=== PATIENT | female | born 2000 | race Caucasian/White ===

== ENCOUNTER 2019-04-06 16:05 | Inpatient (IN) | payer OTHER, SELFPAY | END 2019-04-09 12:43 | disposition home or self-care (01) | DRG 690 | PROVIDERS: Admitting Provider Family Medicine; Emergency Provider Family Medicine; Visit Provider Family Medicine | DX: N10 Acute pyelonephritis (principal); A59.01 Trichomonal vulvovaginitis; F17.210 Nicotine dependence, cigarettes, uncomplicated ==

== ENCOUNTER 2020-03-25 13:54 | Emergency (ER) | payer OTHER, SELFPAY ==
[2020-03-25 14:05] VITALS: BP 133/80; PULSE 122; RESP 14; TEMP 37.7; O2SAT 100; BMI 20.7
--- NOTE | 2020-03-25 14:13 | XRR_ITS ---
PROCEDURE INFORMATION: Exam: XR Chest, 1 View Exam date and time: 03/25/2020 2:16 PM Age: 20 years old Clinical indication: Shortness of breath; Additional info: SOA TECHNIQUE: Imaging protocol: XR of the chest Views: 1 view. COMPARISON: No relevant prior studies available. FINDINGS: Lungs: Unremarkable. No consolidation. Pleural space: Unremarkable. No pleural effusion. No pneumothorax. Heart/Mediastinum: Unremarkable. No cardiomegaly. Bones/joints: Unremarkable. XR/XR chest 1V portable [id number] IMPRESSION: No acute findings.
--- NOTE | 2020-03-25 14:16 | W.ED.SOB ---
HPI - SOB/Dyspnea General: Chief Complaint: Shortness of Breath/Dyspnea Stated Complaint: difficulty breathing Time Seen by Provider: 03/25/20 14:09 Source: patient Mode of arrival: ambulatory Limitations: no limitations History of Present Illness: HPI Narrative: Patient is a 20-year-old female who admits to a history of anxiety who states this morning she woke up feeling short of breath. States she could not walk from her kitchen to her living room without having to stop to catch her breath. Denies coronavirus exposures, denies chance of although LMP was 2 weeks ago. She is mildly febrile with a temperature of 99.8 she is tachycardic with a heart rate of 122 over she is 100% oxygen saturation on room air. She states chest pain on and off for the past month, she states she checked in here but it was very busy and therefore she had left prior to being seen. She denies any significant concerns with this. She denies pedal edema or calf pain, no headache. She denies nausea or vomiting. She is alert and oriented and does appear somewhat anxious. MD elicited complaint: shortness of breath Onset (ago): hour(s) Timing: intermittent Severity: moderate Exacerbating factors: exertion Associated symptoms: Reports fever(s); Deny abdominal pain, extremity pain, hemoptysis, nausea, orthopnea, polydipsia, polyuria or vomiting Related Data: Home oxygen amount: none Review of Systems Const: Reports: fever(s) Eyes: Denies: change in vision, blurry vision, eye discharge or eye redness ENMT: Denies: throat pain, uvular edema, odynophagia, mouth pain, dental pain, nasal congestion or sinus pain Card: Denies: irregular heart rhythm, swelling of feet/ankles, dyspnea on exertion, orthopnea or leg pain with exertion Resp: Reports: dyspnea; Denies: stridor, pain on inspiration or hemoptysis GI: Denies: abdominal pain, nausea, vomiting, diarrhea, constipation or fecal incontinence : Denies: flank pain, difficulty voiding, dysuria, urinary frequency, urinary urgency or urinary hesitancy Musc: Denies: neck pain, back pain, extremity pain or extremity swelling Skin/Breast: Denies: rash, pruritus, erythema, jaundice or dry skin Neuro: Denies: headache(s), numbness in extremities, weakness in extremities, sensory changes, lack of coordination or difficulty walking Psych: Denies: anxiety, depression, mood swings, panic attacks, sleeping less, suicidal ideation or homicidal ideation Endo: Denies: polyuria, polydipsia or tired all the time Jose/Lymph: Denies: easy bruising, petechiae or enlarged lymph nodes All/Imm: Denies: urticaria, throat swelling, facial swelling, acute wheezing or seasonal rhinorrhea [facility] ED Female Reproductive History: Date of last menstrual period: 01/20/20 Physical Exam Const: COMMON NORMALS: no acute distress, patient oriented x3, no limitations, healthy appearing, alert and well nourished GENERAL APPEARANCE: cooperative, comfortable, well kempt and well developed ORIENTATION/CONSCIOUSNESS: Yes awake, Yes oriented to person, Yes oriented to place and Yes oriented to time HENMT: COMMON NORMALS: normocephalic, atraumatic, hearing grossly normal bilaterally, external ears normal, EAC's normal, TM's normal bilaterally, Normal external nose present, Normal nasal mucous membranes and turbinates present, moist oral mucous membranes, oropharynx normal, dentition normal and gingiva normal HEAD & SCALP: normal to inspection, normocephalic and atraumatic FACE & SINUS: normal facial exam NOSE: Normal external nose present and Normal nasal mucous membranes and turbinates present EXTERNAL EAR: Yes external ears normal EXTERNAL AUDITORY CANAL: EAC's normal TYMPANIC MEMBRANE: TM's normal bilaterally MOUTH: Normal oral and palatal mucosa present, lip normal and tongue normal THROAT: no uvular edema Eye: COMMON NORMALS: Equal, round and reactive pupils present, EOMs intact bilaterally, conjunctivae normal, no scleral icterus and normal visual gunn by confrontation GENERAL EYE: appearance normal, both eyes and all related structures and normal light reflex VISUAL ACUITY: Yes acuity normal ALIGNMENT: Yes alignment normal PERIORBITAL: periorbital findings normal EYELID: eyelids normal CONJUNCTIVA: Yes conjunctivae normal SCLERA: sclerae normal PUPIL: Yes Equal, round and reactive pupils present and Yes Pupil accommodation reflex normal DIRECT OPHTHALMOSCOPY: Yes normal light reflex Neck/C-Spine: COMMON NORMALS: full ROM, no lymphadenopathy, supple, no meningeal signs and no JVD GENERAL: Yes normal visual inspection CAROTIDS: Yes normal carotid upstroke CERVICAL SPINE: Yes cervical ROM normal Lymph: LYMPHATIC: no lymphadenopathy noted Chest: COMMONS NORMALS: normal inspection of the chest CHEST: Yes Symmetrical chest wall rise Resp: COMMON NORMALS: No retractions and clear to auscultation bilaterally EFFORT & INSPECTION: Yes able to speak in complete sentences, Yes symmetric chest movement, Yes tachypneic, No decreased respiratory effort, Yes uses accessory muscles (abdominal muscles), No segmental paradoxical chest wall movement and No tripod positioning AUSCULTATION: clear to auscultation bilaterally Cardio: COMMON NORMALS: no JVD, regular rate, regular rhythm, S1 normal heart sound present, S2 normal heart sound present, No murmurs present (Cardio) and Peripheral pulses 2+ throughout RATE: regular rate RHYTHM: regular rhythm HEART SOUNDS: S1 normal heart sound present and S2 normal heart sound present PERIPHERAL PULSES: Peripheral pulses 2+ throughout GI: COMMON NORMALS: Normal to inspection, nondistended, normoactive bowel sounds present and non-tender : COMMON NORMALS: Yes no CVA tenderness BLADDER/KIDNEY EXAM: Yes no CVA tenderness Back/Pelvis: COMMON NORMALS: no CVA tenderness, thoracic and lumbar spine normal to inspection, no thoracic nor lumbar tenderness and thoraco-lumbar ROM normal Extremity: COMMON NORMALS: normal to inspection, full ROM, capillary refill normal, no calf tenderness and no pedal edema Neuro: COMMON NORMALS: patient oriented x3, CN's II-XII intact bilaterally, moves all extremities, no focal motor deficits, no sensory deficits noted and gait normal SENSORIUM/ORIENTATION: Yes alert, Yes oriented to person, Yes oriented to place and Yes oriented to time MENINGEAL SIGNS: Yes no meningeal signs SPEECH: speech normal GAIT: Yes Normal gait present MOTOR EXAM: 5/5 motor strength present throughout, Pronator motor function not present and no tremor noted Psych: COMMON NORMALS: mental status grossly normal, Normal thought process present, cooperative, normal affect, speech normal and activity/motor behavior normal APPEARANCE: Yes well kempt SPEECH: Yes normal speech THOUGHT PROCESS: Normal thought process present THOUGHT CONTENT: Yes Normal thought content present INSIGHT: Good insight present (Psych) Skin: COMMON NORMALS: no rashes or lesions noted, no wounds, turgor normal and no jaundice GENERAL SKIN EXAM: no rashes or lesions noted and turgor normal Course ED course: Patient is extremely anxious with every try to do. During CAT scan that we try to obtain for elevated D-dimer to rule out pulmonary embolism as soon as the injector start she screamed and demanded that the study stop and to be brought back to the room when I tried to explain to her that we needed this test to ensure her safety and to confirm that she does not have a pulmonary embolism causing her elevated D-dimer, tachycardia and shortness of breath and low-grade fever she refused. She is angry that she cannot have anyone in the room with her secondary to pandemic precautions. I advised her I would be more than happy to provide her with Ativan and reattempt obtaining the CTA to rule out potential life threats she demanded that the nurse come and take out her IV and she would leave AMA I advised her this was deleterious to her health overall if she does not fact have a pulmonary embolism it could kill her, she claims that she is too anxious and that is what is making her more sick. Patient is extremely anxious and tearful and shaky. She is demanding to go AGAINST MEDICAL ADVICE I cannot hold her against her will she is still capable of making informed medical decisions about her overall health. Vital Signs: Vital signs: Vital Signs Temperature 99.8 F H 03/25/20 14:05 Pulse Rate 110 H 03/25/20 14:44 Respiratory Rate 24 H 03/25/20 14:44 Blood Pressure 133/80 03/25/20 14:05 Pulse Oximetry 100 03/25/20 14:44 MDM - SOB/Dyspnea MDM Narrative: Medical decision making narrative: Patient is not hypoxic she is somewhat tachypneic. Will evaluate for upper respiratory illnesses or pathology including but not limited to pulmonary embolism, pneumonia, bronchitis, coronavirus, anxiety. Patient agrees. Differential Diagnosis: Shortness of Breath Differential Diagnosis: Likely community acquired pneumonia, asthma with exacerbation and pulmonary embolism Lab Data: Labs: Lab Results 03/25/20 03/25/20 03/25/20 Range/Units 14:33 14:33 14:33 WBC 9.7 (4.0-10.0) 10^3/ uL RBC 4.84 (4.1-5.3) 10^6/u L Hgb 12.7 (11.5-15.3) g/dL Hct 38.7 (37.0-47.0) % MCV 80.0 L (81-99) fL MCH 26.2 L (28.0-34.0) pg MCHC 32.8 (30.0-36.0) g/dL RDW 13.4 (12.1-15.1) % Plt Count 327 (130-400) 10^3/c mm MPV 10.1 (7.4-10.4) fL Neut % (Auto) 42.9 % Lymph % (Auto) 47.0 % [place] % (Auto) 8.3 % Eos % (Auto) 0.6 % Baso % (Auto) 0.9 % Neut # (Auto) 4.16 (1.8-7.7) 10^3/u L Lymph # (Auto) 4.6 (0.8-4.8) 10^3/u L [place] # (Auto) 0.8 (0.2-0.9) 10^3/u L Eos # (Auto) 0.1 (0.0-0.8) 10^3/u L Baso # (Auto) 0.1 (0.0-0.1) 10^3/u L Nucleated RBC % (a uto) 0 % Nucleated RBCs # 0.0 /100WBC ESR (0-15) mm/hr D-Dimer 1.46 H (0-0.59) ug/mIFE U Sodium 135 L (136-145) mmol/L Potassium 3.7 (3.5-5.1) mmol/L Chloride 98 (98-107) mmol/L Carbon Dioxide 23 (22-29) mmol/L Anion Gap 17.7 (5-19) BUN 12 (6-20) mg/dL Creatinine 0.9 (0.5-0.9) mg/dL GFR Calculation 78.3 L (90-130) mL/min Glucose 114 (65-115) mg/dL Calculated Osmolal ity 281 L (285-295) mOsm/k g Calcium 9.4 (8.5-10.5) mg/dL Magnesium 2.4 H (1.7-2.3) mg/dL Ferritin 41 (15-150) ng/mL HCG, Qual (Negative) Urine Opiates Scre en (Negative) ng/mL Ur Barbiturates Sc reen (Negative) ng/mL Ur Phencyclidine S crn (Negative) ng/mL Ur Amphetamines Sc reen (Negative) ng/mL U Benzodiazepines Scrn (Negative) ng/mL Urine Cocaine Scre en (Negative) ng/mL U Marijuana (THC) Screen (Negative) ng/mL 03/25/20 03/25/20 03/25/20 Range/Units 14:33 15:38 15:38 WBC (4.0-10.0) 10^3/ uL RBC (4.1-5.3) 10^6/u L Hgb (11.5-15.3) g/dL Hct (37.0-47.0) % MCV (81-99) fL MCH (28.0-34.0) pg MCHC (30.0-36.0) g/dL RDW (12.1-15.1) % Plt Count (130-400) 10^3/c mm MPV (7.4-10.4) fL Neut % (Auto) % Lymph % (Auto) % [place] % (Auto) % Eos % (Auto) % Baso % (Auto) % Neut # (Auto) (1.8-7.7) 10^3/u L Lymph # (Auto) (0.8-4.8) 10^3/u L [place] # (Auto) (0.2-0.9) 10^3/u L Eos # (Auto) (0.0-0.8) 10^3/u L Baso # (Auto) (0.0-0.1) 10^3/u L Nucleated RBC % (a uto) % Nucleated RBCs # /100WBC ESR 27 H (0-15) mm/hr D-Dimer (0-0.59) ug/mIFE U Sodium (136-145) mmol/L Potassium (3.5-5.1) mmol/L Chloride (98-107) mmol/L Carbon Dioxide (22-29) mmol/L Anion Gap (5-19) BUN (6-20) mg/dL Creatinine (0.5-0.9) mg/dL GFR Calculation (90-130) mL/min Glucose (65-115) mg/dL Calculated Osmolal ity (285-295) mOsm/k g Calcium (8.5-10.5) mg/dL Magnesium (1.7-2.3) mg/dL Ferritin (15-150) ng/mL HCG, Qual Negative (Negative) Urine Opiates Scre en Negative (Negative) ng/mL Ur Barbiturates Sc reen Negative (Negative) ng/mL Ur Phencyclidine S crn Negative (Negative) ng/mL Ur Amphetamines Sc reen Positive H (Negative) ng/mL U Benzodiazepines Scrn Negative (Negative) ng/mL Urine Cocaine Scre en Negative (Negative) ng/mL U Marijuana (THC) Screen Positive H (Negative) ng/mL Discharge Plan Discharge Patient Disposition: Left Against Medical Advice Clinical Impression: Anxiety, Exertional shortness of breath Condition: Stable Prescriptions: No Action aspirin 325 mg Tablet 325 mg PO PRN RF: 0 Calcium + D 600 mg(1,500mg) -200 unit Tablet 1 tab PO PRN RF: 0 potassium gluconate 595 mg (99 mg) Tablet 595 mg PO PRN RF: 0 Discharge Diet: Usual diet Discharge Activity: Resume usual activity Coding Level of Care Code 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
[2020-03-25] MEDS: albuterol 8 gm MDI 2 PUFF INHALATION (14:37)
[2020-03-25 14:44] VITALS: PULSE 110; RESP 24; O2SAT 100
[2020-03-25] MEDS: dexamethasone 4 mg/mL INJ 10 MG IM (14:48)
--- NOTE | 2020-03-25 14:49 | PC.NURSE ---
Dexamethasone given IVP, after okayed with Dr. Herrera. Documented as IVP in MAR
[2020-03-25 15:00] VITALS: BP 129/81; PULSE 107; O2SAT 99
[2020-03-25 15:08] LABS: Basophils # 0.1 10^3/uL (0.0-0.1); Basophils % 0.9 %; Eosinophils # 0.1 10^3/uL (0.0-0.8); Eosinophils % 0.6 %; Hematocrit 38.7 % (37.0-47.0); Hemoglobin 12.7 g/dL (11.5-15.3); Lymphocytes # 4.6 10^3/uL (0.8-4.8); Mean Corpuscular HGB Conc 32.8 g/dL (30.0-36.0); Mean Corpuscular Hemoglobin 26.2 pg (28.0-34.0); Mean Platelet Volume 10.1 fL (7.4-10.4); Monocytes # 0.8 10^3/uL (0.2-0.9); Monocytes % 8.3 %; Neutrophils # 4.16 10^3/uL (1.8-7.7); Neutrophils % 42.9 %; Nucleated Red Blood Cells % 0 %; Platelet Count 327 10^3/cmm (130-400); Red Blood Count 4.84 10^6/uL (4.1-5.3); Red Cell Distribution Width 13.4 % (12.1-15.1); White Blood Count 9.7 10^3/uL (4.0-10.0)
[2020-03-25 15:12] LABS: D Dimer 1.46 ug/mIFEU (0-0.59)
[2020-03-25 15:16] LABS: Anion Gap 17.7 (5-19); Blood Urea Nitrogen 12 mg/dL (6-20); Calcium 9.4 mg/dL (8.5-10.5); Carbon Dioxide 23 mmol/L (22-29); Chloride 98 mmol/L (98-107); Ferritin 41 ng/mL (15-150); Glomerular Filtration Rate 78.3 mL/min (90-130); Glucose 114 mg/dL (65-115); Magnesium 2.4 mg/dL (1.7-2.3); Osmolality Calculated 281 mOsm/kg (285-295); Potassium 3.7 mmol/L (3.5-5.1); Sodium 135 mmol/L (136-145)
[2020-03-25 15:56] LABS: HCG Qualitative Urine. Negative (Negative)
[2020-03-25 16:01] LABS: Amphetamines Screen Urine Positive (Negative); Barbiturates Screen Urine Negative (Negative); Benzodiazepines Screen Urine Negative (Negative); Cocaine Screen Urine Negative (Negative); Opiate Screen Urine Negative (Negative); PCP Screen Urine Negative (Negative); THC Screen Urine Positive (Negative)
[2020-03-25 16:09] LABS: Erythrocyte Sedimentation Rate 27 mm/hr (0-15)
[2020-03-25 16:20] VITALS: PULSE 108; O2SAT 96
[2020-03-26 20:58] LABS: Coronavirus Lab Test PTC Negative
--- NOTE | 2020-03-27 13:06 | PC.NURSE ---
Patient notified of COVID results at this time.
== END 2020-03-25 16:20 | disposition left against medical advice (07) ==
PROVIDERS: Emergency Provider Emergency Medicine
DX: R06.02 Shortness of breath (principal); F41.9 Anxiety disorder, unspecified; Z79.82 Long term (current) use of aspirin
CPT/HCPCS: 12345; 71045; 80048; 80306; 81025; 82728; 83735; 85025; 85378; 85651; 87635; 94640; 96374; 96375; 99283; J1100; J3535

== ENCOUNTER 2020-10-19 14:15 | Emergency (ER) | payer OTHER, SELFPAY ==
[2020-10-19 14:49] VITALS: PULSE 120; RESP 20; TEMP 38.1; O2SAT 98
--- NOTE | 2020-10-19 14:52 | W.ED.GENADLT ---
HPI - General Adult General: Chief complaint: General Medical Stated complaint: SORE THROAT Time Seen by Provider: 10/19/20 14:52 Source: patient Mode of arrival: ambulatory Limitations: no limitations History of Present Illness: HPI narrative: Patient is a 20-year-old female who presents to ED today with complaint of sore throat, headache, and fevers. She states throat began hurting approximately 2 days ago. She has had a fever of up to 102. No trouble swallowing or controlling her secretions. No sick contacts. She denies nasal congestion, rhinorrhea, cough, or shortness of breath. No rash. Previous tonsillectomy in 2016. Onset (ago): day(s) Quality: constant Pain Consistency: constant Relieving factors: none Exacerbating factors: other (swallowing) Associated symptoms: Reports headache(s); Deny chest pain, dyspnea, malaise, nausea, rash or vomiting Review of Systems Const: Reports: fever(s) and chills; Denies: change in appetite, change in weight, fatigue or malaise Eyes: Denies: change in vision or blurry vision ENMT: Reports: throat pain and odynophagia; Denies: nasal discharge or nasal congestion Card: Denies: chest pain Resp: Denies: dyspnea GI: Denies: abdominal pain, nausea, vomiting or diarrhea Musc: Denies: neck pain Skin/Breast: Denies: rash Neuro: Reports: headache(s); Denies: numbness in extremities, weakness in extremities or sensory changes [facility] ED Female Reproductive History: Date of last menstrual period: 01/20/20 Physical Exam Const: COMMON NORMALS: no acute distress, average body habitus, patient oriented x3, no limitations, healthy appearing, alert and well nourished GENERAL APPEARANCE: cooperative ORIENTATION/CONSCIOUSNESS: Yes awake, Yes oriented to person, Yes oriented to place and Yes oriented to time HENMT: COMMON NORMALS: normocephalic, atraumatic, hearing grossly normal bilaterally, external ears normal, EAC's normal, TM's normal bilaterally, Normal external nose present, Normal nasal mucous membranes and turbinates present and gingiva normal HEAD & SCALP: normal to inspection, normocephalic and atraumatic FACE & SINUS: normal facial exam NOSE: Normal external nose present and Normal nasal mucous membranes and turbinates present EXTERNAL EAR: Yes external ears normal EXTERNAL AUDITORY CANAL: EAC's normal TYMPANIC MEMBRANE: TM's normal bilaterally MOUTH: Normal oral and palatal mucosa present, lip normal and tongue normal THROAT: uvula midline, tonsils absent and other (severe exudates noted at tonsillar sides ) Neck/C-Spine: COMMON NORMALS: full ROM GENERAL: Yes lymphadenopathy Resp: COMMON NORMALS: normal respiratory effort and clear to auscultation bilaterally AUSCULTATION: clear to auscultation bilaterally Cardio: COMMON NORMALS: regular rhythm RATE: tachycardic RHYTHM: regular rhythm GI: COMMON NORMALS: Normal to inspection, nondistended, normoactive bowel sounds present, Soft to palpation, non-tender, No hepatosplenomegaly present and no masses PALPATION: Yes Soft to palpation and Yes No hepatosplenomegaly present Neuro: COMMON NORMALS: patient oriented x3 SENSORIUM/ORIENTATION: Yes alert, Yes oriented to person, Yes oriented to place and Yes oriented to time Skin: COMMON NORMALS: no rashes or lesions noted GENERAL SKIN EXAM: no rashes or lesions noted Course Vital Signs: Vital signs: Vital Signs Temperature 100.2 F H 10/19/20 16:08 Pulse Rate 115 H 10/19/20 16:08 Respiratory Rate 20 H 10/19/20 16:08 Blood Pressure 103/68 10/19/20 16:08 Pulse Oximetry 98 10/19/20 16:08 MDM - General Adult MDM Narrative: Medical decision making narrative: Patient with significant exudates to her tonsilar sides. She has fever and lymphadenpathy. Strep and mono negative however given clinical findings will go head and cover with abx. Strict return to ED precautions given. Lab Data: Attestation: I reviewed the patient's lab results. Labs: Lab Results 10/19/20 10/19/20 Range/Units 13:07 15:08 Monoscreen Negative (Negative) Group A Strep Rapi d Negative (Negative) Discharge Plan Discharge Patient Disposition: Home Clinical Impression: Exudative pharyngitis Condition: Stable Prescriptions: New amoxicillin 500 mg capsule 500 mg PO BID 10 Days Qty: 20 RF: 0 No Action aspirin 325 mg Tablet 325 mg PO PRN RF: 0 Calcium + D 600 mg(1,500mg) -200 unit Tablet 1 tab PO PRN RF: 0 potassium gluconate 595 mg (99 mg) Tablet 595 mg PO PRN RF: 0 Discharge Orders: Discharge ED (Routine); Ordered 10/19/20 Ordered By: Kim Vega Patient Instructions: Pharyngitis (ED) Coding Level of Care Code ED Underwater Roboticist for Chg Fwd Exam Detailed
[2020-10-19 15:25] LABS: Rapid Strep A Test Negative (Negative)
[2020-10-19] MEDS: acetaminophen 325 mg Tablet 650 MG PO (15:43)
[2020-10-19 16:00] LABS: Monoscreen Negative (Negative)
[2020-10-19 16:08] VITALS: BP 103/68; PULSE 115; RESP 20; TEMP 37.9; O2SAT 98
== END 2020-10-19 16:13 | disposition home or self-care (01) ==
PROVIDERS: Emergency Provider Physician Assistant
DX: J02.9 Acute pharyngitis, unspecified (principal)
CPT/HCPCS: 86308; 87081; 87880; 99283

== ENCOUNTER 2021-07-17 07:28 | Emergency (ER) | payer OTHER, BC, MEDICAID, SELFPAY ==
[2021-07-17 07:36] VITALS: PULSE 94; TEMP 36.2; O2SAT 95; BMI 21.2
[2021-07-17 07:46] VITALS: BP 116/79; PULSE 95; TEMP 36.2; O2SAT 96
--- NOTE | 2021-07-17 07:49 | W.ED.NAVMDI ---
HPI - Nausea/Vomiting/Diarrhea General: Chief complaint: Nausea/Vomiting/Diarrhea Stated complaint: vomiting/diarrhea Time Seen by Provider: 07/17/21 07:39 History of Present Illness: Patient is a 21-year-old female that is currently 20 weeks and comes to the ED with nausea vomiting and diarrhea. Symptoms started this morning. She woke up and has had multiple episodes of emesis and diarrhea this morning. She still is very nauseous and dry heaving here in the ED. Her little brother had similar symptoms a couple days ago. Her current has been going well and she has had no complications. Denies any food poisoning. Endorses feeling hot and cold flashes chills but denies any fever, shortness of breath, chest pain, cough, sore throat. Denies any abdominal pain, vaginal bleeding, vaginal discharge, dysuria or hematuria. Associated nausea: Yes Associated symtoms: Reports nausea; Denies change in vision, chest pain, dysuria, fatigue, headache(s) or palpitations Review of Systems Const: Denies: fever(s), chills or fatigue Eyes: Denies: change in vision or eye discomfort ENMT: Denies: throat pain, odynophagia, nasal discharge or nasal congestion Card: Denies: chest pain, palpitations, edema, swelling of feet/ankles, dyspnea on exertion or orthopnea Resp: Denies: dyspnea, productive cough or non-productive cough GI: Reports: nausea, vomiting and diarrhea; Denies: abdominal pain, constipation or hematochezia : Denies: flank pain, dysuria, hematuria, vaginal bleeding or vaginal discharge Musc: Denies: neck pain, back pain or extremity swelling Skin/Breast: Denies: rash or new lesions Neuro: Denies: headache(s), numbness in extremities or weakness in extremities PFS ED PFSH: Medical History No pertinent family history Surgical History No pertinent past surgical history Female Reproductive History: Date of last menstrual period: 01/20/20 Physical Exam Narrative: EXAM NARRATIVE: Patient is a 21-year-old female and she is actively dry heaving during exam. Const: COMMON NORMALS: patient oriented x3 and alert GENERAL APPEARANCE: cooperative HENMT: COMMON NORMALS: normocephalic HEAD & SCALP: normocephalic MOUTH: Normal oral and palatal mucosa present THROAT: posterior oropharynx normal and uvula midline Eye: COMMON NORMALS: Equal, round and reactive pupils present and conjunctivae normal CONJUNCTIVA: Yes conjunctivae normal PUPIL: Yes Equal, round and reactive pupils present Neck/C-Spine: COMMON NORMALS: supple GENERAL: Yes normal visual inspection Resp: COMMON NORMALS: normal respiratory effort, No retractions, No use of accessory muscles and clear to auscultation bilaterally AUSCULTATION: clear to auscultation bilaterally Cardio: COMMON NORMALS: regular rate, regular rhythm, S1 normal heart sound present, S2 normal heart sound present, No gallops present (Cardio), No clicks present (Cardio), No murmurs present (Cardio) and Peripheral pulses 2+ throughout RATE: regular rate RHYTHM: regular rhythm HEART SOUNDS: S1 normal heart sound present and S2 normal heart sound present PERIPHERAL PULSES: Peripheral pulses 2+ throughout GI: COMMON NORMALS: Normal to inspection, nondistended, normoactive bowel sounds present, Soft to palpation, non-tender and no masses PALPATION: Yes Soft to palpation OTHER: Patient has no tenderness in abdomen to all 4 quadrants. : COMMON NORMALS: Yes no CVA tenderness BLADDER/KIDNEY EXAM: Yes no CVA tenderness Back/Pelvis: COMMON NORMALS: no CVA tenderness Extremity: COMMON NORMALS: normal to inspection and no pedal edema Neuro: COMMON NORMALS: patient oriented x3 and moves all extremities SENSORIUM/ORIENTATION: Yes alert Skin: GENERAL SKIN EXAM: dry skin Course ED course: Nurse performed Doppler and patient had heart tones detected at a rate of 152 bpm. Reevaluation(s): Reevaluation #1: Patient's nausea and vomiting have improved greatly after 2 L of IV fluids, Zofran and Reglan. She has not had any other episodes of emesis since she got IV fluids and meds. She is feeling a lot better. Time: 10:00 Vital Signs: Vital signs: Vital Signs Temperature 97.1 F L 07/17/21 07:46 Pulse Rate 84 07/17/21 11:55 Respiratory Rate 16 07/17/21 11:55 Blood Pressure 101/47 07/17/21 11:55 Pulse Oximetry 97 07/17/21 11:55 MDM - Nausea/Vomiting/Diarrhea Medical Decision Making Patient is a G2, P1 22-year-old female that is currently 20 weeks and comes to the ED with nausea, vomiting and diarrhea. Symptoms started today when she woke up this morning. Brother had similar symptoms several days ago. Denies any abdominal pain, fevers, headache, vaginal bleeding, vaginal discharge. Vitals stable patient's afebrile. Exam of patient shows a 21-year-old female that is having some active dry heaving during exam. She has no abdominal pain or tenderness. No CVA tenderness. heart tones detected by nurse using Doppler at a rate of 152 bpm. White blood cell count 20.3 but the rest of her CBC CMP were unremarkable. Lactic 2.2. Covid was negative and influenza negative. UA had a few RBCs, white blood cells and bacteria. UA alone not convincing for UTI but given her elevated white blood cell count and symptoms we will treat patient with an antibiotic for UTI. Patient's nausea and vomiting have improved greatly after 2 L of IV fluids, Zofran and Reglan. She has not had any other episodes of emesis since she got IV fluids and meds. She states she is feeling a lot better. Since patient is having fever and has no abdominal tenderness and no other symptoms besides the nausea and vomiting diarrhea which improved after getting IV fluids and nausea meds no need for further imaging at this time. Patient will be referred to go directly over to the OB unit to be evaluated once discharged here from the ED. patient discharged with prescription for cephalexin and Reglan for nausea. Strict return to ED precautions given. Lab Data I reviewed the patient's lab results. : 07/17/21 07:50 07/17/21 07:50 Laboratory Results WBC 20.3 10^3/uL (4.0-10.0) H 07/17/21 07:50 RBC 4.66 10^6/uL (4.1-5.3) 07/17/21 07:50 Hgb 12.9 g/dL (11.5-15.3) 07/17/21 07:50 Hct 37.5 % (37.0-47.0) 07/17/21 07:50 MCV 80.5 fl (81-99) L 07/17/21 07:50 MCH 27.7 pg (28.0-34.0) L 07/17/21 07:50 MCHC 34.4 g/dL (30.0-36.0) 07/17/21 07:50 RDW 13.8 % (12.1-15.1) 07/17/21 07:50 Plt Count 382 10^3/cmm (130-400) 07/17/21 07:50 MPV 10.1 fL (7.4-10.4) 07/17/21 07:50 Neut % (Auto) 80.4 % 07/17/21 07:50 Lymph % (Auto) 13.6 % 07/17/21 07:50 [place] % (Auto) 5.0 % 07/17/21 07:50 Eos % (Auto) 0.3 % 07/17/21 07:50 Baso % (Auto) 0.3 % 07/17/21 07:50 Neut # (Auto) 16.35 10^3/uL (1.8-7.7) H 07/17/21 07:50 Lymph # (Auto) 2.8 10^3/uL (0.8-4.8) 07/17/21 07:50 [place] # (Auto) 1.0 10^3/uL (0.2-0.9) H 07/17/21 07:50 Eos # (Auto) 0.1 10^3/uL (0.0-0.8) 07/17/21 07:50 Baso # (Auto) 0.1 10^3/uL (0.0-0.1) 07/17/21 07:50 Nucleated RBC % (auto) 0 % 07/17/21 07:50 Nucleated RBCs # 0.0 /100WBC 07/17/21 07:50 Sodium 134 mmol/L (136-145) L 07/17/21 07:50 Potassium 3.7 mmol/L (3.5-5.1) 07/17/21 07:50 Chloride 100 mmol/L (98-107) 07/17/21 07:50 Carbon Dioxide 17 mmol/L (22-29) L 07/17/21 07:50 Anion Gap 20.7 (5-19) H 07/17/21 07:50 BUN 11 mg/dL (6-20) 07/17/21 07:50 Creatinine 0.5 mg/dL (0.5-0.9) 07/17/21 07:50 GFR Calculation 152.9 mL/min (90-130) H 07/17/21 07:50 Glucose 105 mg/dL (65-115) 07/17/21 07:50 Calculated Osmolality 278 mOsm/kg (285-295) L 07/17/21 07:50 Lactic Acid 2.2 mmol/L (0.5-2.2) 07/17/21 07:50 Calcium 9.9 mg/dL (8.5-10.5) 07/17/21 07:50 Total Bilirubin 0.2 mg/dL (0.15-1.2) 07/17/21 07:50 AST 18 U/L (0-32) 07/17/21 07:50 ALT 12 U/L (0-33) 07/17/21 07:50 Alkaline Phosphatase 105 IU/L (35-105) 07/17/21 07:50 Total Protein 7.5 g/dL (6.6-8.7) 07/17/21 07:50 Albumin 4.5 g/dL (3.5-5.2) 07/17/21 07:50 Globulin 3.0 g/dL (1.3-4.6) 07/17/21 07:50 Lipase 28 U/L (13-60) 07/17/21 07:50 Urine Color Yellow (Yellow) 07/17/21 Unknown Urine Appearance Hazy (CLEAR) A 07/17/21 Unknown Urine pH 6.5 (5-7) 07/17/21 Unknown Ur Specific [employer] 1.010 (1.005-1.030) 07/17/21 Unknown Urine Protein Trace (Negative) 07/17/21 Unknown Urine Glucose (UA) Norm (Normal) 07/17/21 Unknown Urine Ketones 2+ (Negative) H 07/17/21 Unknown Urine Blood Neg (Negative) 07/17/21 Unknown Urine Nitrate Negative (Negative) 07/17/21 Unknown Urine Bilirubin Neg (Negative) 07/17/21 Unknown Urine Urobilinogen Neg mg/dL (Negative) 07/17/21 Unknown Ur Leukocyte Esterase 2+ (Negative) H 07/17/21 Unknown Urine RBC 5-10 /hpf (0-2) H 07/17/21 Unknown Urine WBC 5-10 /hpf (0-5) H 07/17/21 Unknown Ur Squamous Epith Cells 5-10 /hpf (0-5) H 07/17/21 Unknown Amorphous Sediment 1+ /hpf 07/17/21 Unknown Urine Bacteria 2+ /hpf (NONE) H 07/17/21 Unknown Urine Mucus 2+ /hpf 07/17/21 Unknown Coronavirus 229E (PCR) Not detected (NOT DETECT) 07/17/21 08:06 Influenza Type A Ag Negative (Negative) 07/17/21 08:06 Influenza Type B Ag Negative (Negative) 07/17/21 08:06 SARS-CoV-2 (PCR) Not detected (NOT DETECT) 07/17/21 08:06 Discharge Plan Discharge Patient Disposition: Home Clinical Impression: Acute viral syndrome, UTI (urinary tract infection) in in second trimester Condition: Stable Prescriptions: New cephalexin 500 mg capsule 500 mg PO Q6H 7 Days Qty: 28 0RF Reglan 10 mg tablet 10 mg PO Q6H PRN (Reason: nausea and vomiting) Qty: 15 0RF No Action aspirin 325 mg Tablet 325 mg PO PRN 0RF Calcium + D 600 mg(1,500mg) -200 unit Tablet 1 tab PO PRN 0RF potassium gluconate 595 mg (99 mg) Tablet 595 mg PO PRN 0RF Discharge Orders: Discharge ED (Routine); Ordered 07/17/21 Ordered By: Mitchell Cortez Discharge Diet: Regular Discharge Activity: Increase activity as tolerated Patient Instructions: Viral Syndrome (ED), Urinary Tract Infection in (ED) Activity Restrictions/Additional Instructions: Follow-up with medical provider as directed. After discharge from emergency department go directly over to the OB unit to be evaluated. Take medications as prescribed. Make sure you drink plenty of fluids and stay hydrated. Return to the ER or your medical provider if condition worsens. Please read and understand discharge instructions. Thank you for choosing [facility] for your healthcare needs today. Please realize this is an emergency room and that we are providing you with a medical screening exam and this may not be complete and all inclusive of all the testing and or work up that you may need to determine your ailment or severity of your illness. It is very important that you follow up as instructed or that you return to the Emergency Department should you have concerns or if your condition changes or worsens in any way. Coding Level of Care Code ED Spinning Machine Operator for Abundio Fwd Exam Comprehensive
[2021-07-17] MEDS: sodium chloride 0.9% 1,000 ML 999 ML IV ×2 (08:00→09:35)
[2021-07-17] MEDS: ondansetron 2 mg/ML SDV 2 mL 4 MG IVP (08:00)
[2021-07-17 08:05] LABS: Basophils # 0.1 10^3/uL (0.0-0.1); Basophils % 0.3 %; Eosinophils # 0.1 10^3/uL (0.0-0.8); Eosinophils % 0.3 %; Hematocrit 37.5 % (37.0-47.0); Hemoglobin 12.9 g/dL (11.5-15.3); Lymphocytes # 2.8 10^3/uL (0.8-4.8); Lymphocytes % 13.6 %; Mean Corpuscular HGB Conc 34.4 g/dL (30.0-36.0); Mean Corpuscular Hemoglobin 27.7 pg (28.0-34.0); Mean Corpuscular Volume 80.5 fl (81-99); Mean Platelet Volume 10.1 fL (7.4-10.4); Neutrophils # 16.35 10^3/uL (1.8-7.7); Neutrophils % 80.4 %; Nucleated Red Blood Cells % 0 %; Platelet Count 382 10^3/cmm (130-400); Red Blood Count 4.66 10^6/uL (4.1-5.3); Red Cell Distribution Width 13.8 % (12.1-15.1); White Blood Count 20.3 10^3/uL (4.0-10.0)
[2021-07-17 08:26] LABS: Alanine Aminotransferase 12 U/L (0-33); Albumin Level 4.5 g/dL (3.5-5.2); Alkaline Phosphatase 105 IU/L (35-105); Anion Gap 20.7 (5-19); Aspartate Amino Transferase 18 U/L (0-32); Blood Urea Nitrogen 11 mg/dL (6-20); Calcium 9.9 mg/dL (8.5-10.5); Carbon Dioxide 17 mmol/L (22-29); Chloride 100 mmol/L (98-107); Glomerular Filtration Rate 152.9 mL/min (90-130); Glucose 105 mg/dL (65-115); Lipase 28 U/L (13-60); Osmolality Calculated 278 mOsm/kg (285-295); Potassium 3.7 mmol/L (3.5-5.1); Sodium 134 mmol/L (136-145); Total Bilirubin 0.2 mg/dL (0.15-1.2); Total Protein 7.5 g/dL (6.6-8.7)
[2021-07-17 08:51] LABS: Influenza A by IFA Negative (Negative); Influenza B by IFA Negative (Negative)
[2021-07-17] MEDS: metoclopramide 5 mg/mL SDV 2 mL 10 MG IVP (09:38)
[2021-07-17 10:09] LABS: Adenovirus Not Detected (NOT DETECT); Chlamydia Pneumoniae Not Detected (NOT DETECT); Coronavirus 229E,HKU1,NL63,OC4 Not Detected (NOT DETECT); Human Metapneumovirus Not Detected (NOT DETECT); Human Rhinovirus/Enterovirus Not Detected (NOT DETECT); Influenza A Not Detected (NOT DETECT); Influenza A H1 Not Detected (NOT DETECT); Influenza A H1-2009 Not Detected (NOT DETECT); Influenza A H3 Not Detected (NOT DETECT); Influenza B Not Detected (NOT DETECT); Mycoplasma Pneumoniae Not Detected (NOT DETECT); Parainfluenza Virus Type 1 Not Detected (NOT DETECT); Parainfluenza Virus Type 2 Not Detected (NOT DETECT); Parainfluenza Virus Type 3 Not Detected (NOT DETECT); Parainfluenza Virus Type 4 Not Detected (NOT DETECT); Respiratory Syncytial Virus A Not Detected (NOT DETECT); Respiratory Syncytial Virus B Not Detected (NOT DETECT); SARS-COV-2 Not Detected (NOT DETECT)
[2021-07-17 10:49] LABS: Lactic Sepsis W/Reflex 2.2 mmol/L (0.5-2.2)
[2021-07-17 11:01] LABS: Add Urine Microscopic? YES; Bacteria Urine 2+ /hpf; Bilirubin Urine Neg (Negative); Blood Urine Neg (Negative); Glucose Urine UA Norm (Normal); Ketones Urine 2+ (Negative); Leukocyte Esterase Urine 2+ (Negative); Nitrate Urine Negative (Negative); Protein Urine Trace (Negative); Urine Appearance Hazy (CLEAR); Urine Color Yellow (Yellow); Urobilinogen Urine Neg (Negative); pH Urine 6.5 (5-7)
[2021-07-17 11:02] LABS: Add Urine Culture? Yes; Amorphous Sediment Urine 1+ /hpf; Mucus Urine 2+ /hpf
[2021-07-17 11:55] VITALS: BP 101/47; PULSE 84; RESP 16; O2SAT 97
[2021-07-17 12:22] LABS: Reflex Lactate Order REFLEX LACTIC ORDERD
== END 2021-07-17 11:57 | disposition home or self-care (01) ==
PROVIDERS: Emergency Provider Physician Assistant; PCP Family Medicine
DX: O23.42 Unspecified infection of urinary tract in pregnancy, second trimester (principal); N39.0 Urinary tract infection, site not specified; B34.9 Viral infection, unspecified; Z3A.20 20 weeks gestation of pregnancy
CPT/HCPCS: 80053; 81001; 83605; 83690; 85025; 87086; 87635; 87804; 96361; 96374; 96375; 99284; J2405; J2765; J7030

== ENCOUNTER 2021-07-17 11:57 | Outpatient (CLI) | payer OTHER, BC, MEDICAID, SELFPAY ==
[2021-07-17 12:00] VITALS: BMI 21.4
== END 2021-07-17 12:08 | disposition home or self-care (01) ==
PROVIDERS: PCP Family Medicine; Visit Provider Family Medicine
DX: O21.9 Vomiting of pregnancy, unspecified (principal); Z3A.00 Weeks of gestation of pregnancy not specified
CPT/HCPCS: 99211

== ENCOUNTER 2021-09-23 14:45 | Outpatient (CLI) | payer OTHER, BC, MEDICAID, SELFPAY ==
[2021-09-23] VITALS (11 sets, daily range): BP systolic 109–121; BP diastolic 65–71; PULSE 62–77; RESP 16; TEMP 36.9; BMI 21.9
[2021-09-23 16:54] LABS: Bilirubin Urine Neg (Negative); Blood Urine Neg (Negative); Glucose Urine UA Norm (Normal); Ketones Urine Negative (Negative); Leukocyte Esterase Urine 2+ (Negative); Nitrate Urine Negative (Negative); Protein Urine Neg (Negative); RBC Urine 0-4 /hpf (0-2); Specific Gravity, Urine 1.015 (1.005-1.030); Sulfosalicylic Acid Urine Negative (Negative); Urine Appearance Clear (CLEAR); Urine Color Yellow (Yellow); Urobilinogen Urine Norm (Negative); pH Urine 8 (5-7)
[2021-09-23 16:55] LABS: Amorphous Sediment Urine TRACE /hpf; Bacteria Urine 1+ /hpf; Mucus Urine 1+ /hpf
[2021-09-23 16:56] LABS: Add Urine Culture? No; Trichomonas Urine 2+ /hpf
[2021-09-23] MEDS: metroNIDAZOLE 500 MG Tablet PO (17:30)
== END 2021-09-23 17:44 | disposition home or self-care (01) ==
LOC: OPOB 14:55 → OBGYN 14:55
PROVIDERS: PCP Family Medicine; Visit Provider Family Medicine
DX: O46.90 Antepartum hemorrhage, unspecified, unspecified trimester (principal); Z3A.00 Weeks of gestation of pregnancy not specified
CPT/HCPCS: 59025; 81001; 99211

== ENCOUNTER 2021-11-08 07:03 | Outpatient (CLI) | payer OTHER, BC, MEDICAID, SELFPAY ==
--- NOTE | 2021-11-08 07:15 | US_ITS ---
WS: [id number] LIMITED OBSTETRICAL ULTRASOUND HISTORY: SIZE INCONSISTENT W/DATES COMPARISON: 07/15/2021 Presentation: Vertex. Cervix: Closed and normal length. Placenta: Fundal, no previa. Grade: 3 HEART: FHR of 150 BPM. measurements: BPD = 8.8 cm = 35w5d HC = 31.7 cm = 35w5d AC = 31.5 cm = 35w3d FL = 6.9 cm = 35w4d FRANKLIN: 11.5 cm EFW: 2692 g; 45 %. AGA by ultrasound: 35w4d ANNA by ultrasound: 12/09/2021 Biometry centrally concordant. growth is appropriate since the second trimester ultrasound of . US/US OB limited [id number] IMPRESSION: 1. Single intrauterine gestation of 35 weeks 4 days with an EDC of 12/09/2021. Appropriate growth since the first trimester ultrasound. 2. No growth asymmetry. 3. Grade 3 placenta.
== END 2021-11-08 07:04 | disposition home or self-care (01) ==
LOC: RAD 07:06
PROVIDERS: PCP Family Medicine; Visit Provider Family Medicine
DX: O26.849 Uterine size-date discrepancy, unspecified trimester (principal); Z3A.35 35 weeks gestation of pregnancy
CPT/HCPCS: 76815

== ENCOUNTER 2021-11-30 05:07 | Inpatient (IN) | payer OTHER, BC, SELFPAY ==
--- NOTE | 2021-11-12 13:02 | ANES.PREANE2 ---
Pre-Anesthetic Assessment Height/Weight: Height 1.6 m Operation Date: 11/30/21 07:00 Proposed Procedures p Section Repeat(Not Applicable) - Clifton Chu MD Familial anesthetic complications: none Was Beta Kylah taken within 24 hours: N/A Was Clonidine taken within 24 hours: N/A Social Tobacco and No alcohol Exam alert, oriented x 3 and regular rate & rhythm Airway Submandibular: within normal limits Cervical ROM: within normal limits Mallampati: Class II Dentition: full History/ROS No significant history except as noted Anesthetic Plan ASA status: 2 Anesthesia: Regional (specify below) (SAB (no morphine)) Medications/Allergies Home Medications Medication Instructions Recorded Confirmed Last Taken Type aspirin 325 mg tablet 325 mg PO PRN headaches 03/25/20 03/25/20 Unknown History calcium carbonate 600 mg-vitamin 1 tab PO PRN 03/25/20 03/25/20 03/23/20 History D3 5 mcg (200 unit) tablet potassium gluconate 595 mg (99 mg) 595 mg PO PRN 03/25/20 03/25/20 03/23/20 History tablet metoclopramide HCl 10 mg tablet 10 mg PO Q6H PRN nausea and 07/17/21 Unknown Rx (Reglan) vomiting #15 tabs Allergies Allergy/AdvReac Type Severity Reaction Status Date / Time azithromycin [From Zithromax] Allergy ALGY-Hives Verified 07/17/21 07:36 PFSH Anesthesia Medical History No pertinent family history Surgical History No pertinent past surgical history Female Reproductive History Date of last menstrual period: 01/20/20 Data Anesthesia Cardiac Studies: No Data to Display
[2021-11-30] VITALS (28 sets, daily range): BP systolic 97–158; BP diastolic 69–97; PULSE 40–74; RESP 15–17; TEMP 36.6; O2SAT 97–98; BMI 22.6
[2021-11-30] MEDS: lactated ringers 1,000 ML 999 ML IV (05:36)
[2021-11-30 05:38] LABS: Basophils % 0.4 %; Eosinophils # 0.1 10^3/uL (0.0-0.8); Eosinophils % 1.4 %; Hematocrit 32.5 % (37.0-47.0); Hemoglobin 10.3 g/dL (11.5-15.3); Lymphocytes # 3.9 10^3/uL (0.8-4.8); Lymphocytes % 42.2 %; Mean Corpuscular HGB Conc 31.7 g/dL (30.0-36.0); Mean Corpuscular Hemoglobin 25.8 pg (28.0-34.0); Mean Corpuscular Volume 81.5 fl (81-99); Mean Platelet Volume 12.1 fL (7.4-10.4); Monocytes # 0.8 10^3/uL (0.2-0.9); Monocytes % 8.8 %; Neutrophils # 4.32 10^3/uL (1.8-7.7); Neutrophils % 46.4 %; Nucleated Red Blood Cells % 0 %; Platelet Count 241 10^3/cmm (130-400); Red Blood Count 3.99 10^6/uL (4.1-5.3); Red Cell Distribution Width 14.6 % (12.1-15.1); White Blood Count 9.3 10^3/uL (4.0-10.0)
[2021-11-30] MEDS: lactated ringers 1,000 ML 125 ML IV (06:47)
[2021-11-30 06:51] LABS: Amphetamines Screen Urine Negative (Negative); Barbiturates Screen Urine Negative (Negative); Benzodiazepines Screen Urine Negative (Negative); Cocaine Screen Urine Negative (Negative); Opiate Screen Urine Negative (Negative); PCP Screen Urine Negative (Negative); THC Screen Urine Positive (Negative)
--- NOTE | 2021-11-30 07:42 | PM.OPHPUD ---
Labor & Delivery H&P Update Date of Procedure: November 30, 2021 Date H&P Performed: 11/28/21 Changes to previous documentation: None. Her physical exam demonstrates no changes. Her lungs are clear to auscultation bilaterally. She has physiologic bradycardia. She is gravid. She looks surprisingly comfortable and calm. Admission Diagnosis: 21-year-old 2 para 1-0-0-1 at 39 weeks estimated gestational age presenting for a repeat section Planned procedure: Operation Date: 11/30/21 07:00 Proposed Procedures p Section Repeat(Not Applicable) - Clifton Chu MD Other information: The patient is a 21-year-old 2 para 1-0-0-1 who is presenting today for a scheduled repeat section. Her has been relatively unremarkable. There have been no complications. She has had consistent care. We discussed earlier in her her options including a versus a scheduled . After discussing the pros and cons, she elected to proceed with a repeat section. We discussed the risks including the risks of bleeding, infection, and damage to intra-abdominal organs. She had no further questions and wishes to proceed. Her labs demonstrated THC positive. She was also GBS positive. Her blood type was B+ with her antibody screen being negative. Her glucose screen was negative. The remainder of her infectious disease profile and labs are within normal limits. Related Problem List Diagnoses (1) 39 weeks gestation of : (2) History of : (3) Marijuana use: Assessment & Plan Assessment & Plan (1) 39 weeks gestation of : Code(s): Z3A.39 - 39 weeks gestation of Category: Medical Status: Acute (2) History of : Code(s): Z98.891 - History of uterine scar from previous surgery Category: Surgical Status: Acute (3) Marijuana use: Code(s): F12.90 - Cannabis use, unspecified, uncomplicated Category: Social Hx Plan: The patient has been notified that DFS will be contacted. Also of note, she gave up custody of her child to her mother. Status: Acute
[2021-11-30] MEDS: citric acid-sodium citrate 30 mL UDC PO (07:43)
[2021-11-30] MEDS: famotidine 20 mg/2 mL INJ IVP (07:43)
[2021-11-30] MEDS: metoclopramide 5 mg/mL SDV 2 mL 10 MG IVP (07:43)
[2021-11-30] MEDS: ceFAZolin 2,000 MG in sodium chloride 0.9% (plus) 50 ML 100 MG IV (07:44)
--- NOTE | 2021-11-30 08:12 | ANES.PAUD2 ---
Pre-Anesthetic Update Pre-Anesthetic Assessment: Date of Surgery/Procedure: 11/30/21 Proposed Procedure: Operation Date: 11/30/21 07:00 Proposed Procedures p Section Repeat(Not Applicable) - Clifton Chu MD Any changes to Pre-Anesthetic Assessment?: No Labs Last 48hrs: Short CBC 11/30/21 Range/Units 05:30 WBC 9.3 (4.0-10.0) 10^3/ uL Hgb 10.3 L (11.5-15.3) g/dL Hct 32.5 L (37.0-47.0) % MCV 81.5 (81-99) fl Plt Count 241 (130-400) 10^3/c mm Neut % (Auto) 46.4 % Neut # (Auto) 4.32 (1.8-7.7) 10^3/u L Vitals: Pulse Rate 46 L 11/30/21 05:24 Pulse Rhythm 11/30/21 05:55 Pulse Strength 3+ Normal 11/30/21 05:55 Respiratory Rate 17 11/30/21 05:16 Respiratory Effort Non-Labored 11/30/21 05:55 Respiratory Depth Normal 11/30/21 05:55 Respiratory Patter n 11/30/21 05:55 Blood Pressure 126/77 11/30/21 05:24 Oxygen Delivery Me thod 11/30/21 05:55 Exam: Pre-Anes Outpt Exam: alert, oriented x 3, clear to auscultation bilaterally and regular rate & rhythm Cardiac Studies: No Data to Display
--- NOTE | 2021-11-30 09:12 | P.OP_ITS ---
Operative Report Date of procedure: November 30, 2021 Pre-op diagnosis: 21-year-old 2 para 1-0-0-1 at 39 weeks estimated gestational age presenting for a repeat section Post-op diagnosis: Status post lower transverse section Procedure done: Lower transverse section Specimens removed/disposition: 1. Male with a weight of 5 pounds 6 ounces and Apgars of 9 and 9 2. Placenta with a three-vessel cord delivered intact Surgeon: Clifton Chu Estimated blood loss (mL): 500 Procedure: The patient was brought back to the operating room where she was prepped and draped in usual sterile fashion. Anesthesia was found to be adequate. A lower transverse skin incision was then made with a #10 blade. I then dissected down to the underlying subcutaneous tissue until arriving at the prerectal fascia. The fascia was then nicked with the scalpel bilaterally. The fascial incisions were then carried laterally with Dobson scissors. Attention was then turned to the superior aspect of the incision which was grasped with kochers and tented up away from the underlying rectus abdominis muscles. The muscles were then dissected away from the fascia manually, and later with Dobson scissors. Attention was then turned to the inferior aspect of the incision, and the fascia was dissected away from the underlying muscle in similar fashion. The rectus abdominis muscles were then spread manually. The peritoneum was entered manually. Excellent visualization of the uterus was noted. A lower transverse uterine incision was then made with a #10 blade. Upon arriving at the int rauterine cavity, the uterine incision was then extended manually. The infant was noted to be in vertex position. The baby was delivered without difficulty. After delivery of the head, the mouth and nose were suctioned at the site of the incision. There was no meconium. There was no nuchal cord. The baby was then completely delivered and placed on the abdomen. The cord was cut and clamped. The baby was then handed to the waiting nurse. The placenta was removed intact. The uterus was externalized. The intrauterine cavity was cleansed of any remaining debris. The uterine incision was reapproximated in 2 layers. The first layer was performed with 0 Vicryl in a running locked stitch. The second layer was an imbricating stitch also using 0 Vicryl. The uterus was replaced into the abdomen. The peritoneum was then irrigated with warm saline. I reexamined the uterine incision and found it to be hemostatic. The rectus abdominis muscles were then reapproximated using 0 Vicryl in a running stitch. The fascia was then reapproximated using 0 Vicryl in running stitch. The skin was reapproximated using david. A sterile dressing was placed. All counts were correct x2. Both the mother and baby were in stable condition.
--- NOTE | 2021-11-30 09:21 | ANE.PACU2 ---
Inpatient post-anesthesia follow up: Airway intact: Yes Vital signs: Temperature Pulse Rate 46 Respiratory Rate 17 Blood Pressure 126/77 Pulse Oximetry Oxygen Delivery Me thod Room Air Oxygen Flow Rate Fraction of Inspir ed Oxygen Hydration adequate: Yes Nausea and vomiting: No Pain level: 1 Mental status: Baseline
[2021-11-30] MEDS: HYDROcodone-acetaminophen 5-325 mg Tablet PO ×2 (11:40→15:34)
--- NOTE | 2021-11-30 12:36 | PC.NURSE ---
nani care performed. pad and chux changed. popsicle given
[2021-11-30] MEDS: ketorolac 30 mg/mL INJ IVP ×2 (14:26→21:28)
--- NOTE | 2021-11-30 15:22 | PC.NURSE ---
Pt up to chair with minimal assistance. Scant vaginal bleeding. Clear liquids provided.
[2021-11-30] MEDS: HYDROcodone-acetaminophen 5-325 mg Tablet 1 TAB PO (16:14)
[2021-11-30] MEDS: ferrous sulfate EC 325 mg Tablet PO (18:11)
[2021-11-30] MEDS: docusate sodium 100 mg Capsule PO (18:11)
--- NOTE | 2021-11-30 19:14 | PC.NURSE ---
pt ambulated 1 lap around unit without assistance. denied pain/dizziness/nausea. back to room to rest in bed. bedside report done.
[2021-11-30 21:43] LABS: Hematocrit 30.4 % (37.0-47.0); Hemoglobin 9.6 g/dL (11.5-15.3); Mean Corpuscular HGB Conc 31.6 g/dL (30.0-36.0); Mean Corpuscular Hemoglobin 25.9 pg (28.0-34.0); Mean Corpuscular Volume 82.2 fl (81-99); Mean Platelet Volume 12.1 fL (7.4-10.4); Platelet Count 218 10^3/cmm (130-400); Red Cell Distribution Width 14.7 % (12.1-15.1); White Blood Count 11.7 10^3/uL (4.0-10.0)
[2021-12-01] MEDS: HYDROcodone-acetaminophen 5-325 mg Tablet PO ×2 (02:02→06:29)
[2021-12-01 04:00] VITALS: BP 129/63; PULSE 61; RESP 16; O2SAT 95
[2021-12-01] MEDS: docusate sodium 100 mg Capsule PO (08:04)
[2021-12-01] MEDS: ferrous sulfate EC 325 mg Tablet PO (08:04)
[2021-12-01] MEDS: ibuprofen 800 mg tablet PO ×2 (08:04→15:19)
[2021-12-01] MEDS: prenatal vitamin Capsule 1 CAP PO (08:04)
[2021-12-01 10:33] VITALS: RESP 17
[2021-12-01] MEDS: oxyCODONE-APAP 5-325 mg Tablet PO ×2 (10:33→15:18)
[2021-12-01 10:38] VITALS: BP 126/76; PULSE 64; RESP 17; TEMP 36.5
--- NOTE | 2021-12-01 14:49 | PM.OBGYDC ---
Discharge Providers DEPILATORY PAINTER Date of Admission: 11/30/21 05:07 Date of Discharge: 12/01/21 Attending Provider at Admission: Clifton Chu MD Attending Provider at Discharge: Clifton Chu MD Primary Care Provider: Clifton Chu MD Diagnoses at Discharge Discharge Diagnosis (1) 39 weeks gestation of : Status: Acute (2) History of : Status: Acute (3) Marijuana use: Status: Acute Reason for Visit Reason for Visit: [facility] [id number] Hospital Course Hospital Course The patient presented to the hospital for a repeat section at 39 weeks estimated gestational age. Her was unremarkable. Her course was also unremarkable. She did not have any Duramorph and her final, and she did have some moderate issues with pain. We increased her oral pain medication from hydrocodone to oxycodone. She did better. Information Peripartum Data: Delivery Method: Physical Exam Narrative: She is in no acute distress Lungs are clear auscultation bilaterally Her heart has a regular rate and rhythm Her fundus is below the umbilicus and firm Her dressing is clean, dry and intact Her extremities have trace edema Urinary Catheter Management: Delgado Latex: Cath Placed During This Visit: yes, but has since been removed by the nurse Reason for Continuing Indwelling Catheter: Decision to DC Catheter Urinary Catheter Date of Insertion: 11/30/21 Urinary Catheter Time of Insertion: 08:00 Date Urinary Catheter Removed: 12/01/21 Time Urinary Catheter Discontinued: 06:30 Discharge Data Studies Completed and Pending Laboratory Results WBC 11.7 10^3/uL (4.0-10.0) H 11/30/21 21:35 RBC 3.70 10^6/uL (4.1-5.3) L 11/30/21 21:35 Hgb 9.6 g/dL (11.5-15.3) L 11/30/21 21:35 Hct 30.4 % (37.0-47.0) L 11/30/21 21:35 MCV 82.2 fl (81-99) 11/30/21 21:35 MCH 25.9 pg (28.0-34.0) L 11/30/21 21:35 MCHC 31.6 g/dL (30.0-36.0) 11/30/21 21:35 RDW 14.7 % (12.1-15.1) 11/30/21 21:35 Plt Count 218 10^3/cmm (130-400) 11/30/21 21:35 MPV 12.1 fL (7.4-10.4) H 11/30/21 21:35 Neut % (Auto) 46.4 % 11/30/21 05:30 Lymph % (Auto) 42.2 % 11/30/21 05:30 [place] % (Auto) 8.8 % 11/30/21 05:30 Eos % (Auto) 1.4 % 11/30/21 05:30 Baso % (Auto) 0.4 % 11/30/21 05:30 Neut # (Auto) 4.32 10^3/uL (1.8-7.7) 11/30/21 05:30 Lymph # (Auto) 3.9 10^3/uL (0.8-4.8) 11/30/21 05:30 [place] # (Auto) 0.8 10^3/uL (0.2-0.9) 11/30/21 05:30 Eos # (Auto) 0.1 10^3/uL (0.0-0.8) 11/30/21 05:30 Baso # (Auto) 0.0 10^3/uL (0.0-0.1) 11/30/21 05:30 Nucleated RBC % (auto) 0 % 11/30/21 05:30 Nucleated RBCs # 0.0 /100WBC 11/30/21 05:30 Urine Opiates Screen Negative ng/mL (Negative) 11/30/21 06:14 Ur Barbiturates Screen Negative ng/mL (Negative) 11/30/21 06:14 Ur Phencyclidine Scrn Negative ng/mL (Negative) 11/30/21 06:14 Ur Amphetamines Screen Negative ng/mL (Negative) 11/30/21 06:14 U Benzodiazepines Scrn Negative ng/mL (Negative) 11/30/21 06:14 Urine Cocaine Screen Negative ng/mL (Negative) 11/30/21 06:14 U Marijuana (THC) Screen Positive ng/mL (Negative) H 11/30/21 06:14 Vitals Last Vital Signs Temp 97.7 F 08/21/22 10:38 Pulse 64 12/01/21 10:38 Resp 17 12/01/21 10:38 BP 126/76 12/01/21 10:38 Pulse Ox 95 12/01/21 04:00 O2 Del Method 11/30/21 11:34 Discharge Plan Discharge Patient Disposition: Home Condition: Stable Prescriptions: New ibuprofen 800 mg Tablet 800 mg PO TID Qty: 45 0RF docusate sodium 100 mg Capsule 100 mg PO BID Qty: 14 0RF -U 106.5-1 mg Capsule 1 cap PO BREAKFAST Qty: 100 1RF oxycodone-acetaminophen 5-325 mg Tablet 1 tab PO Q6H PRN (Reason: Moderate To Severe Pain) Qty: 28 0RF Discharge Orders: Discharge Order (Routine); Ordered 12/01/21 Ordered By: Clifton Chu Referrals: Clifton Chu MD [Primary Care Provider] - 12/04/21 Discharge Diet: Usual diet Discharge Activity: Limit activity as instructed Patient Instructions: Opioid Safety Discharge Attestations DEPILATORY PAINTER Time Spent in Discharge Care*: less than 30 min Coding Level of Care Code Acute Die Press Operator for Chg Fwd Diagnoses 39 weeks gestation of Z3A.39 History of Z98.891 Marijuana use F12.90
[2021-12-01 15:18] VITALS: RESP 17
[2021-12-01 15:21] VITALS: BP 132/74; PULSE 67; RESP 17; TEMP 36.7
[2021-12-01 15:45] VITALS: BP 132/74; PULSE 67; RESP 17; TEMP 36.7
== END 2021-12-01 15:50 | disposition home or self-care (01) | DRG 787 ==
PROVIDERS: Admitting Provider Family Medicine; PCP Family Medicine; Visit Provider Family Medicine
PROC: 10D00Z1 Extraction of Products of Conception, Low, Open Approach (ICD-10-PCS; CPT 59514; principal; 2021-11-30 07:00)
DX: O34.211 Maternal care for low transverse scar from previous cesarean delivery (principal); O99.324 Drug use complicating childbirth; N85.8 Other specified noninflammatory disorders of uterus; Z3A.39 39 weeks gestation of pregnancy; O99.334 Smoking (tobacco) complicating childbirth; F17.210 Nicotine dependence, cigarettes, uncomplicated; F12.90 Cannabis use, unspecified, uncomplicated
CPT/HCPCS: 12345; 36415; 51702; 59025; 59409; 80306; 85025; 85027; J1100; J1200; J1885; J2405; J2765; J3010; J3490

== ENCOUNTER 2022-11-01 21:11 | Emergency (ER) | payer BC, MEDICAID, SELFPAY ==
[2022-11-01 21:25] VITALS: BP 127/73; PULSE 72; RESP 18; TEMP 36.6; O2SAT 95; BMI 17.1
[2022-11-01 21:44] LABS: Basophils % 0.2 %; Eosinophils % 0.1 %; Hemoglobin 13.4 g/dL (11.5-15.3); Lymphocytes # 1.5 10^3/uL (0.8-4.8); Lymphocytes % 14.6 %; Mean Corpuscular HGB Conc 33.5 g/dL (30.0-36.0); Mean Corpuscular Hemoglobin 27.6 pg (28.0-34.0); Mean Corpuscular Volume 82.5 fl (81-99); Monocytes # 0.4 10^3/uL (0.2-0.9); Monocytes % 3.6 %; Neutrophils # 8.21 10^3/uL (1.8-7.7); Neutrophils % 81.2 %; Nucleated Red Blood Cells % 0 %; Platelet Count 315 10^3/cmm (130-400); Red Blood Count 4.85 10^6/uL (4.1-5.3); Red Cell Distribution Width 13.7 % (12.1-15.1); White Blood Count 10.1 10^3/uL (4.0-10.0)
[2022-11-01 21:53] LABS: HCG, Serum Qual Negative (Negative)
--- NOTE | 2022-11-01 21:59 | ED_ITS ---
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 States today she has been vomiting states she had multiple episodes of vomiting said some mild abdominal cramping states she feels like she is dehydrated and needs IV fluids. She denies any worsening proving factors denies any diarrhea. Associated nausea: Yes Associated symtoms: Reports nausea; Denies chest pain, dysuria or headache(s) Review of Systems Const: Denies: fever(s), chills, body aches or change in appetite ENMT: Denies: throat pain or dental pain Card: Denies: chest pain Resp: Denies: dyspnea GI: Reports: nausea and vomiting; Denies: abdominal pain or diarrhea : Denies: dysuria Musc: Denies: neck pain or back pain Skin/Breast: Denies: rash Neuro: Denies: headache(s) PFSH ED PFSH: Medical History No pertinent family history Surgical History No pertinent past surgical history Physical Exam Const: COMMON NORMALS: no acute distress, patient oriented x3 and healthy appearing HENMT: COMMON NORMALS: normocephalic and atraumatic HEAD & SCALP: normocephalic and atraumatic Eye: COMMON NORMALS: conjunctivae normal CONJUNCTIVA: Yes conjunctivae normal Neck/C-Spine: COMMON NORMALS: full ROM and supple Chest: COMMONS NORMALS: normal inspection of the chest Resp: COMMON NORMALS: normal respiratory effort Cardio: COMMON NORMALS: regular rate, regular rhythm and No murmurs present (Cardio) RATE: regular rate RHYTHM: regular rhythm GI: COMMON NORMALS: Normal to inspection, nondistended, normoactive bowel sounds present, Soft to palpation, non-tender and no masses PALPATION: Yes Soft to palpation Extremity: COMMON NORMALS: normal to inspection and full ROM Neuro: COMMON NORMALS: patient oriented x3, moves all extremities and no focal motor deficits Psych: COMMON NORMALS: mental status grossly normal, Normal thought process present and cooperative THOUGHT PROCESS: Normal thought process present Skin: COMMON NORMALS: no rashes or lesions noted and no wounds GENERAL SKIN EXAM: no rashes or lesions noted Course Vital Signs: Vital signs: Vital Signs Temperature 98 F 11/01/22 21:25 Pulse Rate 63 11/01/22 22:21 Respiratory Rate 16 11/01/22 22:21 Blood Pressure 111/58 11/01/22 22:21 Pulse Oximetry 98 11/01/22 22:21 MDM - Nausea/Vomiting/Diarrhea Medical Decision Making Patient presents with vomiting is likely alcohol related she feels improved after fluids and Zofran she is stable for discharge lab work is normal we will prescribe her Zofran for home she is return if worsening Medical Records I reviewed the patient's medical records. Lab Data I reviewed the patient's lab results. 11/01/22 21:36 11/01/22 21:36 Laboratory Results WBC 10.1 10^3/uL (4.0-10.0) H 11/01/22 21:36 RBC 4.85 10^6/uL (4.1-5.3) 11/01/22 21:36 Hgb 13.4 g/dL (11.5-15.3) 11/01/22 21:36 Hct 40.0 % (37.0-47.0) 11/01/22 21:36 MCV 82.5 fl (81-99) 11/01/22 21:36 MCH 27.6 pg (28.0-34.0) L 11/01/22 21:36 MCHC 33.5 g/dL (30.0-36.0) 11/01/22 21:36 RDW 13.7 % (12.1-15.1) 11/01/22 21:36 Plt Count 315 10^3/cmm (130-400) 11/01/22 21:36 MPV 10.0 fL (7.4-10.4) 11/01/22 21:36 Neut % (Auto) 81.2 % 11/01/22 21:36 Lymph % (Auto) 14.6 % 11/01/22 21:36 [place] % (Auto) 3.6 % 11/01/22 21:36 Eos % (Auto) 0.1 % 11/01/22 21:36 Baso % (Auto) 0.2 % 11/01/22 21:36 Neut # (Auto) 8.21 10^3/uL (1.8-7.7) H 11/01/22 21:36 Lymph # (Auto) 1.5 10^3/uL (0.8-4.8) 11/01/22 21:36 [place] # (Auto) 0.4 10^3/uL (0.2-0.9) 11/01/22 21:36 Eos # (Auto) 0.0 10^3/uL (0.0-0.8) 11/01/22 21:36 Baso # (Auto) 0.0 10^3/uL (0.0-0.1) 11/01/22 21:36 Nucleated RBC % (auto) 0 % 11/01/22 21:36 Nucleated RBCs # 0.0 /100WBC 11/01/22 21:36 Sodium 137 mmol/L (136-145) 11/01/22 21:36 Potassium 4.0 mmol/L (3.5-5.1) 11/01/22 21:36 Chloride 98 mmol/L (98-107) 11/01/22 21:36 Carbon Dioxide 21 mmol/L (22-29) L 11/01/22 21:36 Anion Gap 22.0 (5-19) H 11/01/22 21:36 BUN 14 mg/dL (6-20) 11/01/22 21:36 Creatinine 0.7 mg/dL (0.5-0.9) 11/01/22 21:36 GFR Calculation 102.8 mL/min (90-130) 11/01/22 21:36 Glucose 131 mg/dL (65-115) H 11/01/22 21:36 Calculated Osmolality 286 mOsm/kg (285-295) 11/01/22 21:36 Calcium 9.9 mg/dL (8.5-10.5) 11/01/22 21:36 Total Bilirubin 0.6 mg/dL (0.15-1.2) 11/01/22 21:36 AST 30 U/L (0-32) 11/01/22 21:36 ALT 33 U/L (0-33) 11/01/22 21:36 Alkaline Phosphatase 61 U/L (35-105) 11/01/22 21:36 Total Protein 7.5 g/dL (6.6-8.7) 11/01/22 21:36 Albumin 4.6 g/dL (3.5-5.2) 11/01/22 21:36 Globulin 2.9 g/dL (1.3-4.6) 11/01/22 21:36 Lipase 19 U/L (13-60) 11/01/22 21:36 HCG, Qual Negative (Negative) 11/01/22 21:36 Discharge Plan Discharge Patient Disposition: Home Clinical Impression: Vomiting Condition: Stable Prescriptions: New ondansetron 4 mg tablet,disintegrating 4 mg PO Q6H PRN (Reason: nausea and vomiting) Qty: 14 0RF No Action Nexplanon 68 mg implant subdermal ondansetron 4 mg tablet,disintegrating 4 mg PO Q6H PRN (Reason: nausea and vomiting) Qty: 20 0RF ibuprofen 800 mg Tablet 800 mg PO TID Qty: 45 0RF Discharge Orders: Discharge ED (Routine); Ordered 11/01/22 Ordered By: Santana Rose Referrals: Clifton Chu MD [Primary Care Provider] - 1-3 days Discharge Diet: Advance as tolerated Discharge Activity: Resume usual activity Patient Instructions: Acute Nausea and Vomiting (ED) Stand Alone Forms: Work/School Release Coding Level of Care Code ED [employer] Draft[employer] for [employer]und[employer] Keller
[2022-11-01] MEDS: ondansetron 2 mg/ML SDV 2 mL 4 MG IVP (22:05)
[2022-11-01] MEDS: sodium chloride 0.9% 1,000 ML 999 ML IV (22:08)
[2022-11-01 22:21] VITALS: BP 111/58; PULSE 63; RESP 16; O2SAT 98
[2022-11-01 22:41] LABS: Alanine Aminotransferase 33 U/L (0-33); Albumin Level 4.6 g/dL (3.5-5.2); Alkaline Phosphatase 61 U/L (35-105); Aspartate Amino Transferase 30 U/L (0-32); Blood Urea Nitrogen 14 mg/dL (6-20); Calcium 9.9 mg/dL (8.5-10.5); Carbon Dioxide 21 mmol/L (22-29); Chloride 98 mmol/L (98-107); Globulin 2.9 g/dL (1.3-4.6); Glomerular Filtration Rate 102.8 mL/min (90-130); Glucose 131 mg/dL (65-115); Lipase 19 U/L (13-60); Osmolality Calculated 286 mOsm/kg (285-295); Sodium 137 mmol/L (136-145); Total Bilirubin 0.6 mg/dL (0.15-1.2); Total Protein 7.5 g/dL (6.6-8.7)
[2022-11-01 23:19] VITALS: BP 111/58; PULSE 63; RESP 16; TEMP 36.6; O2SAT 98
[2022-11-01 23:33] LABS: Add Urine Microscopic? YES; Bilirubin Urine Neg (Negative); Blood Urine Neg (Negative); Glucose Urine UA Norm (Normal); Ketones Urine 3+ (Negative); Leukocyte Esterase Urine 2+ (Negative); Nitrate Urine Negative (Negative); Protein Urine Trace (Negative); Urine Appearance Cloudy (CLEAR); Urine Color Yellow (Yellow); Urobilinogen Urine Norm (Negative); pH Urine 6 (5-7)
[2022-11-01 23:35] LABS: Bacteria Urine 3+ /hpf; RBC Urine 0-4 /hpf (0-2); Squamous Epithelial Cell Urine 25-40 /hpf (0-5); WBC Urine 25-40 /hpf (0-5)
[2022-11-01 23:36] LABS: Mucus Urine 1+ /hpf
== END 2022-11-01 23:20 | disposition home or self-care (01) ==
PROVIDERS: Emergency Provider Emergency Medicine; PCP Family Medicine
DX: R11.11 Vomiting without nausea (principal)
CPT/HCPCS: 36415; 80053; 81001; 83690; 84703; 85025; 96361; 96374; 99284; J2405; J7030